=== PATIENT | female | born 1955 | race Caucasian/White ===

== ENCOUNTER 2016-03-06 15:22 | Emergency (ER) | payer OTHER ==
[~2016-03-06] VITALS: Ht 157.5 cm; Wt 114.5 kg
[~2016-03-06 15:22] MED LIST: DOXYCYCLINE HY100 MG PO; FLOVENT 22120 INHALA IH; HYDROCHLOROTH12.5 M3 PO; KLOR-CON M1010 MEQ PO; Keflex PO; MYSOLINE250 MG PO; OSTEO BI-FLEX1 EAC2 PO; PRILOSEC20 MG PO; PRINIVIL20 MG PO; TIROSINT75 MCG PO; TOPAMAX100 MG PO; Ultram PO; VENTOLIN HFA18 GM IH; WARFARIN SODIUM4 MG PO
[2016-03-06 16:14] LABS: EOSINOPHIL (%) 2.1 % (0-5); EOSINOPHIL COUNT 0.1 K/uL (0-0.3); HEMATOCRIT 38.1 % (36.0-46.0); LYMPHOCYTE COUNT 0.7 K/uL (1.0-2.8); MCH 33.1 PG (29.0-34.0); MCHC 33.6 G/DL (30.0-36.0); MCV 98.4 FL (83-99); MONOCYTE (%) 6.3 % (3-12); MONOCYTE COUNT 0.2 K/uL (0-0.8); NEUTROPHIL (%) 73.5 % (45-76); NEUTROPHIL COUNT 2.8 K/uL (1.8-6.4); PLATELET COUNT 124 K/uL (156-360); RBC DIS.WIDTH-CV 14.3 % (11.8-14.6); RBC DIS.WIDTH-SD 49.5 % (39-53); RED BLOOD COUNT 3.87 M/uL (3.80-5.20); WHITE BLOOD COUNT 3.8 K/uL (4.1-10.2)
[2016-03-06 16:22] LABS: CHLORIDE 114 mEq/L (99-109); SODIUM 142 mEq/L (136-147)
[2016-03-06 16:24] LABS: GLUCOSE 109 mg/dL (70-99)
[2016-03-06 16:25] LABS: ANION GAP 8 MEQ/L (2-14)
[2016-03-06 16:26] LABS: TOTAL BILIRUBIN 0.2 mg/dL (0.0-1.0)
[2016-03-06 16:28] LABS: ALKALINE PHOSPHATASE 126 IU/L (3-129); GFR ESTIMATE (CALCULATED) 38 mL/min/
[2016-03-06 16:29] LABS: UREA NITROGEN (BUN) 43 mg/dL (9-23)
[2016-03-06 16:54] LABS: INTACT PARATHYROID HORMONE 963 pg/mL (10-69)
[2016-03-06] MEDS ORDERED: LEVO-T75 MCG PO (18:50)
[2016-03-06] MEDS ORDERED: WARFARIN SODIUM10 MG PO (18:52)
[2016-03-06] MEDS ORDERED: OSTEO BI-FLEX1 EAC1 PO (18:52)
[2016-03-06] MEDS ORDERED: FLOVENT 22120 INHALA IH (18:53)
[2016-03-06 21:40] VITALS: BP 158/72
== END 2016-03-06 21:42 | disposition home or self-care (01) ==
LOC: EME 15:22
PROVIDERS: Physician Assistant
DX: E21.3 Hyperparathyroidism, unspecified (principal); I10 Essential (primary) hypertension; Z88.6 Allergy status to analgesic agent
CPT/HCPCS: 80053; 82330; 83970; 85025; 99281; 99283; J7030